=== PATIENT | female | born 1945 ===

== ENCOUNTER 2022-12-31 09:46 | Outpatient (CLI) | payer OTHER ==
[~2022-12-31 09:46] MED LIST: LIPITOR20 MG PO; LISINOPRIL20 MG PO; OMEGA 3 FISH OI1 CAP PO; OSTEOBYFLEX; SUPER B-50 COM1 EACH; VITAMIN C100 M1 PO; ZANTAC300 MG
== END 2022-12-31 09:49 | disposition home or self-care (01) ==
LOC: RX STUDY 09:46
PROVIDERS: ATTEND Urology
DX: N39.46 Mixed incontinence (principal); N81.10 Cystocele, unspecified
CPT/HCPCS: 51600; 74455; A9698

== ENCOUNTER 2024-05-04 07:00 | Inpatient (IN) | payer OTHER ==
[~2024-05-04] VITALS: Ht 157.5 cm; Wt 68.0 kg
[2024-05-04 08:36] LABS: HEMATOCRIT 46.1 % (36.0-45.00); HEMOGLOBIN 15.1 g/dL (12.0-15.00); MEAN CELL VOLUME 86.6 fL (80.00-100.00); MEAN CORPUSCULAR HEMOGLOBIN 28.4 pg (27.00-32.0); MEAN CORPUSCULAR HGB CONC 32.8 g/dl (32.0-36.0); PLATELET COUNT 314 K/uL (150-450); RED BLOOD COUNT 5.32 M/uL (4.00-6.00); RED CELL DISTRIBUTION WIDTH 13.4 % (11.5-14.5)
[2024-05-04] MEDS ORDERED: HYDRODIURIL12.5 MG PO (08:41)
[2024-05-04] MEDS ORDERED: AMLODIPINE BESYL5 MG PO (08:42)
[2024-05-04] MEDS ORDERED: PEPCID AC20 MG PO (08:42)
[2024-05-04] MEDS ORDERED: ZESTRIL40 M1 PO (08:44)
[2024-05-04 08:58] VITALS: BP 130/80
[2024-05-04 09:22] LABS: PARTIAL THROMBOPLASTIN TIME 27.5 SECONDS (22.0-34.0); PROTHROMBIN TIME 10.9 SECONDS (9.0-11.5)
[2024-05-04 09:28] LABS: ALBUMIN 4.1 gm/dL (3.4-5.0); BILIRUBIN TOTAL 0.73 mg/dL (0.3-1.2); CALCIUM 9.5 mg/dL (8.5-10.1); CREATININE SERUM 0.73 mg/dL (0.55-1.02); GFR 77.51; GLOBULINA 3.6 G/DL (2.4-3.5); POTASSIUM 3.94 mEq/L (3.5-5.1); TOTAL PROTEIN 7.7 gm/dL (6.4-8.2)
[2024-05-04 09:35] LABS: PH,URINE 6.5 (5.0-8.0); URINE APPEARANCE Clear; URINE BILIRRUBIN Negative (NEGATIVE); URINE BLOOD Negative; URINE COLOR Yellow; URINE GLUCOSE Negative (NEGATIVE); URINE KETONE Negative (NEGATIVE); URINE LEUKOCYTE Negative; URINE NITRATE Negative; URINE PROTEIN Negative (NEGATIVE); URINE UROBILINOGEN 0.2 E.U./dl
[2024-05-04 09:40] LABS: URINE BACTERIA 6.2 uL (0.0-1933); URINE EPITHELIAL CELLS 1.6 uL (0.0-38.8); URINE RBC 5.1 uL (0.0-20.8); URINE WBC 5.9 uL (0.0-23.2)
[2024-05-10] MEDS ORDERED: ROSUVASTATIN CA10 MG (08:05)
[2024-05-10] MEDS ORDERED: RESTASIS1 EACH (08:05)
[2024-05-10] MEDS ORDERED: NORVASC2.5 MG (08:05)
[2024-05-10] MEDS ORDERED: FLUOROMETHOLONE5 ML (08:05)
[2024-05-10] MEDS ORDERED: ISOPROPYL ALCOHOL 30 ML OUNCE TOP ONE (08:30)
[2024-05-10] MEDS ORDERED: CEFAZOLIN SODIUM 1,000 MG VIAL IV ONE (08:30)
[2024-05-10] MEDS ORDERED: BUPIVACAINE HCL 30 ML VIAL IJ ONE (08:30)
[2024-05-10] MEDS ORDERED: KETOROLAC TROMETHAMINE 60 MG VIAL IM ONE (08:30)
[2024-05-10] MEDS ORDERED: TRANEXAMIC ACID 100MG/1ML (1000MG) AMPUL IV ONE ×2 (08:30)
[2024-05-10] MEDS ORDERED: VANCOMYCIN HCL 1,000 MG VIAL IR ONE (08:30)
[2024-05-10] MEDS ORDERED: OxyCODONE HCL/APAP UD (PERCOCET) PO PRN (09:30)
[2024-05-10] MEDS ORDERED: ONDANSETRON HCL 2 MG/ML VIAL IV PRN (09:30)
[2024-05-10] MEDS ORDERED: MORPHINE SULFATE 4 MG/ML VIAL IV ONE ×2 (11:20→11:50)
[2024-05-10] MEDS ORDERED: CEFAZOLIN SODIUM 1,000 MG VIAL IV SCH (12:00)
[2024-05-10] MEDS ORDERED: MORPHINE SULFATE 4 MG/ML CARTRIDGE IV SCH (12:00)
[2024-05-10 14:37] VITALS: BP 159/73; O2SAT 95
[2024-05-10] MEDS ORDERED: ORPHENADRINE CITRATE 100 MG TABLET PO SCH (21:00)
[2024-05-10] MEDS ORDERED: GABAPENTIN 100 MG CAPSULE PO SCH (21:00)
[2024-05-11 00:54] VITALS: BP 144/70; O2SAT 98
[2024-05-11 09:00] VITALS: BP 158/70; O2SAT 96
[2024-05-11] MEDS ORDERED: ENOXAPARIN SODIUM 30 MG/0.3 ML SYRINGE SUBCUTANEO SCH (09:00)
[2024-05-11 09:19] LABS: HEMATOCRIT 38.2 % (36.0-45.00); HEMOGLOBIN 12.7 g/dL (12.0-15.00); MEAN CELL VOLUME 85.9 fL (80.00-100.00); MEAN CORPUSCULAR HEMOGLOBIN 28.5 pg (27.00-32.0); MEAN CORPUSCULAR HGB CONC 33.2 g/dl (32.0-36.0); PLATELET COUNT 268 K/uL (150-450); RED BLOOD COUNT 4.45 M/uL (4.00-6.00); RED CELL DISTRIBUTION WIDTH 13.2 % (11.5-14.5)
[2024-05-11] MEDS ORDERED: FAMOtidine 20 MG TABLET PO NR (15:30)
[2024-05-11] MEDS ORDERED: AMLODIPINE BESYLATE 5 MG TABLET PO NR (15:30)
[2024-05-11] MEDS ORDERED: SOD FERRIC GLUC COMPLX/SUCROSE 62.5 MG/5 ML AMPUL IV SCH (17:00)
[2024-05-11] MEDS ORDERED: VITAMIN B COMPLEX 1 EACH PO SCH (17:00)
[2024-05-11] MEDS ORDERED: Cyanocobalamin/Mecobalamin 1 TAB.SL SL SCH (17:00)
[2024-05-11 17:33] VITALS: BP 168/78; O2SAT 96
[2024-05-11] MEDS ORDERED: AMLODIPINE BESYLATE 2.5 MG TABLET PO SCH (21:00)
[2024-05-12 01:23] VITALS: BP 154/67; O2SAT 98
[2024-05-12 06:28] LABS: HEMATOCRIT 38.2 % (36.0-45.00); HEMOGLOBIN 12.6 g/dL (12.0-15.00); MEAN CELL VOLUME 86.4 fL (80.00-100.00); MEAN CORPUSCULAR HEMOGLOBIN 28.5 pg (27.00-32.0); MEAN CORPUSCULAR HGB CONC 32.9 g/dl (32.0-36.0); PLATELET COUNT 284 K/uL (150-450); RED BLOOD COUNT 4.42 M/uL (4.00-6.00)
[2024-05-12 08:00] VITALS: BP 151/69; O2SAT 96
[2024-05-12] MEDS ORDERED: FAMOtidine 20 MG TABLET PO SCH (09:00)
[2024-05-12] MEDS ORDERED: HYDROCHLOROTHIAZIDE 12.5 MG CAPSULE PO SCH (09:00)
[2024-05-12] MEDS ORDERED: AMLODIPINE BESYLATE 5 MG TABLET PO SCH (09:00)
[2024-05-12] MEDS ORDERED: LISINOPRIL 40 MG TABLET PO SCH (09:00)
[2024-05-12] MEDS ORDERED: NORFLEX100MG PO (15:03)
[2024-05-12] MEDS ORDERED: GABAPENTIN100 MG PO (15:04)
[2024-05-12] MEDS ORDERED: OXYC1TAB9 PO (15:05)
[2024-05-12] MEDS ORDERED: ELIQUIS2.5 MG PO (15:06)
[2024-05-12 16:00] VITALS: BP 142/65; O2SAT 98
== END 2024-05-12 18:02 | DRG 470 ==
LOC: O/R 05-10 05:11 → SURH 05-10 05:11
PROVIDERS: ADMIT Orthopaedic Surgery; ATTEND Orthopaedic Surgery
PROC: 0SRC0JZ Replacement of Right Knee Joint with Synthetic Substitute, Open Approach (ICD-10-PCS; principal; 2024-05-10 09:45)
DX: M17.11 Unilateral primary osteoarthritis, right knee (principal); D62 Acute posthemorrhagic anemia; M85.661 Other cyst of bone, right lower leg; I11.9 Hypertensive heart disease without heart failure